=== PATIENT | male | born 1955 | race Caucasian/White ===

== ENCOUNTER 2016-08-21 09:09 | Day surgery (SDC) | payer BC, OTHER ==
[~2016-08-21 09:09] MED LIST: RINGERS SOLUTION,LACTATED 1,000 ML IV PRN
--- OUTSIDE RECORDS SUMMARY | 2016-08-21 09:15 | XMS REPORT | Continuity of Care Document ---
:1955 Author Organization [facility] ([facility]) [place] [address] Phone [phone] Care Team Providers Name Role Phone Mackenzie Horta Primary Care Provider [phone] Source Comments This disclosure is being made pursuant to the Care Everywhere program, applicable federal and state laws, and may not contain all informaitonavailable regarding this patient.[facility] ([facility]) Active Allergies and Adverse Reactions Allergen Noted Date Severity Reactions Comments Penicillin G 04/12/2014 Unknown Current Medications Prescription Sig. Disp. Refills Start Date End Date Status aspirin 81 mg EC Take 81 mg by mouth Active tablet daily. HYDROcodone-acetamino Take 1 Tab by mouth 30 Tab 0 04/12/2014 Active phen 5-325 mg per every 4 hours as tablet needed for Pain. DO NOT EXCEED 3,000 MG ACETAMINOPHEN PER DAY FROM ALL SOURCES Indications: PAIN ibuprofen 800 mg Take 1 Tab by mouth 30 Tab 0 04/12/2014 Active tablet every 6 hours as needed for Pain. DO NOT EXCEED 3,200 MG IBUPROFEN PER DAY FROM ALL SOURCES Indications: PAIN Active Problems Not on file Social History Tobacco Use Types Packs/Day Years Used Date Never Smoker Smokeless Tobacco: Current User Chew Tobacco Cessation:Ready to Quit: No; Counseling Given: Yes Comments: Alcohol Use Drinks/Week oz/Week Comments Yes 3 Cans of beer 1.5 Last Filed Vital Signs Vital Sign Reading Time Taken Blood Pressure 161/74 04/12/2014 11:00 AM WEIGHT YARDAGE CHECKER Pulse 97 04/12/2014 8:41 AM WEIGHT YARDAGE CHECKER Temperature 37.3 C (99.1 F) 04/12/2014 8:41 AM WEIGHT YARDAGE CHECKER Respiratory Rate 16 04/12/2014 8:41 AM WEIGHT YARDAGE CHECKER Height 1.753 m (5' 9") 04/12/2014 8:41 AM WEIGHT YARDAGE CHECKER Weight 95.255 kg (210 lb) 04/12/2014 8:41 AM WEIGHT YARDAGE CHECKER Body Mass Index 31 04/12/2014 8:41 AM WEIGHT YARDAGE CHECKER Oxygen Saturation 99% 04/12/2014 11:00 AM WEIGHT YARDAGE CHECKER Plan of Care Health Maintenance Due Date Last Done Comments HCV Screening 1955 Hepatitis B Vaccine (1 of 3 - Primary Series) 1955 Tdap Vaccine 1965 Lipid Disorder Screening 1972 Td Vaccine 1972 Colonoscopy 08/04/2004 Prostate Cancer Screening 2004 Zoster Vaccine 2014 Influenza Vaccine: Seasonal (#1) 11/04/2015 Results from Last 3 Months Not on file
--- OUTSIDE RECORDS SUMMARY | 2016-08-21 09:15 | XMS REPORT | Continuity of Care Document ---
:1955 Author Organization [employer] [place] [address] Care Team Providers Name Role Phone Unavailable Primary Care Provider Unavailable Source Comments This disclosure is being made pursuant to the [employer] program and maynot contain all information available regarding this patient.[employer] Active Allergies and Adverse Reactions Not on File Current Medications Be aware that medications may not be up to date as of this document. Alwaysverify current medications with the patient. Not on file Active Problems Not on file Social History Tobacco Use Types Packs/Day Years Used Date Never Assessed Plan of Care Health Maintenance Due Date Last Done Comments Retired-Pertussis Vaccine Adult 1973 Retired-Tetanus Vaccine Adult 1973 Colonoscopy 2004 Well Adult Visit 2004 Zoster Vaccine 60+ 2014 Retired-INFLUENZA VACCINE 12/04/2014 Results from Last 3 Months Not on file
[2016-08-21] MEDS ORDERED: RINGERS SOLUTION,LACTATED 1,000 ML IV ONE (09:39)
--- NOTE | 2016-08-21 10:54 | OR ---
Operative Report - Dictated Report Narrative: Date: 08/21/2016 PREOP: Perineal abscess possible fistula POSTOP: Perineal abscess PROC: Exam under anesthesia. I&D Perineal abscess Staff surgeon: Ady Solis MD Anes: Local/MAC Comps: none apparent Drains: none Description: Pt placed in prone/katie-knife position and buttocks taped apparent. Inspection reveals a punctum draining purulence 6 cm from anal verge just to the left of midline at the base of the scrotum. There is an irritated and bleeding external hemorrhoid at 2:00. A schmitt retractor is inserted into the anus and inspection is carried out of the anal canal and lower rectum. No readily obvious fistulous opening is identified. The abscess was irrigated with normal saline using a 14 ga. intracath. The abscess was then filled with hydrogen peroxide and no bubbling could be seen in the rectum or anal canal. A cruciate incision was therefore made at the opening of the abscess and all loculations were broken down by finger. The abscess extended 8 cm into the pelvis. Marcaine soaked gelfoam was packed in the anus and the opening of the abscess. An anal retentive dressing and sani-panties were applied. The patient tolerated the procedure well without apparent complications and discharged from the OR in good condition.
[2016-08-21] MEDS ORDERED: HYDROcodone/ACETAMINOPHEN 1 EACH TABLET PO PRN (10:56)
[2016-08-21 12:05] VITALS: BP 122/66
== END 2016-08-21 09:10 | disposition home or self-care (01) ==
LOC: AMB 09:09
PROVIDERS: ATTEND Specialist
PROC: 0D9QXZZ Drainage of Anus, External Approach (ICD-10-PCS; principal; 2016-08-21 10:45)
DX: K61.0 Anal abscess (principal); K64.4 Residual hemorrhoidal skin tags; F17.200 Nicotine dependence, unspecified, uncomplicated; Z68.31 Body mass index [BMI] 31.0-31.9, adult

== ENCOUNTER 2016-08-24 10:57 | Inpatient (IN) | payer OTHER ==
--- OUTSIDE RECORDS SUMMARY | 2016-08-24 11:04 | XMS REPORT | Continuity of Care Document ---
:1955 Author Organization [employer] [place] [address] Care Team Providers Name Role Phone Unavailable Primary Care Provider Unavailable Source Comments This disclosure is being made pursuant to the [employer] program and maynot contain all information available regarding this patient.[employer] Active Allergies and Adverse Reactions Not on [...]
--- OUTSIDE RECORDS SUMMARY | 2016-08-24 11:04 | XMS REPORT | Continuity of Care Document ---
:1955 Author Organization [facility] ([facility]) [place] [address] Phone [phone] Care Team Providers Name Role Phone Mackenzie Horta Primary Care Provider [phone] Source Comments This disclosure is being made pursuant to the Care Everywhere program, applicable federal and state laws, and may not contain all informaitonavailable regarding this patient.[facility] ([facility]) Active Allergies and Adverse Reactions Allergen Noted [...] Taken Blood Pressure 161/74 04/12/2014 11:00 AM DAMAGE ADJUSTER Pulse 97 04/12/2014 8:41 AM DAMAGE ADJUSTER Temperature 37.3 C (99.1 F) 04/12/2014 8:41 AM DAMAGE ADJUSTER Respiratory Rate 16 04/12/2014 8:41 AM DAMAGE ADJUSTER Height 1.753 m (5' 9") 04/12/2014 8:41 AM DAMAGE ADJUSTER Weight 95.255 kg (210 lb) 04/12/2014 8:41 AM DAMAGE ADJUSTER Body Mass Index 31 04/12/2014 8:41 AM DAMAGE ADJUSTER Oxygen Saturation 99% 04/12/2014 11:00 AM DAMAGE ADJUSTER Plan of Care Health Maintenance Due Date Last Done Comments HCV Screening 1955 Hepatitis B Vaccine (1 of 3 - Primary Series) 1955 Tdap Vaccine 1965 Lipid Disorder Screening 1972 Td Vaccine 1972 Colonoscopy 08/04/2004 Prostate Cancer Screening 2004 Zoster Vaccine 2014 Influenza Vaccine: Seasonal (#1) 11/04/2015 Results from Last 3 Months Not on file
[2016-08-24] MEDS ORDERED: PIPERACILLIN SODIUM/TAZOBACTAM 3.375 GM in DEXTROSE 5 % IN WATER 100 ML IV SCH ×4 (12:00→19:15)
[2016-08-24] MEDS ORDERED: traMADol HCL 50 MG TABLET PO PRN (12:03)
[2016-08-24] MEDS ORDERED: ONDANSETRON HCL/PF 2 MG/ML VIAL IV PRN (12:03)
[2016-08-24] MEDS ORDERED: MORPHINE SULFATE 2 MG/ML DISP.SYRIN IV PRN (12:04)
[2016-08-24] MEDS ORDERED: ENOXAPARIN SODIUM 40 MG/0.4 ML SYRG SC SCH (12:15)
[2016-08-24 12:38] LABS: Hemoglobin 12.3 gm/dL (13.5-18.0); Mean Cell Volume 88.3 fl (78-100); Mean Corpuscular Hemoglobin 29.4 pg (27-31); Mean Corpuscular Hgb Conc 33.2 g/dl (32-36); Platelet Count 221 K/mm3 (150-450); Red Blood Count 4.19 M/mm3 (4.7-6.0); Red Cell Distribution Width 13.8 % (11.5-14.0); White Blood Count 15.4 K/mm3 (4.0-10.5)
[2016-08-24 12:45] LABS: Albumin * 2.3 gm/dl (3.4-5.0); BUN/Creatinine Ratio 13.9 (9.0-21.6); Bilirubin, Total 0.8 mg/dL (0.0-1.1); Ca. Corrected For Albumin 10.3 mg/dL (8.4-10.2); Calcium * 9.3 mg/dL (7.9-10.9); Carbon Dioxide 26.9 mmol/L (24-32.6); Potassium 2.9 mmol/L (3.4-4.6); Total Cells Counted 100; Total Protein 7.9 gm/dL (6.2-8.2)
[2016-08-24 12:46] LABS: Band 1 % (0-2.0); Eosinophil 2 % (0-3); Lymphocyte 13 % (20-51); Monocyte 2 % (0-9); Neutrophil 82 % (42-75); Neutrophil # 12.6 K/mm3 (1.3-6.0); Platelet Estimate Normal (NORMAL); RBC Morphology Normal (NORMAL)
[2016-08-24 12:55] LABS: CRP 10.8 mg/dL (0.0-0.9)
[2016-08-24] MEDS ORDERED: NORMAL SALINE 1,000 ML IV ONE (13:04)
[2016-08-24] MEDS ORDERED: LORazepam 2 MG/ML DISP.SYRIN IV PRN ×3 (13:28)
[2016-08-24] MEDS ORDERED: MULTIVIT INFUSN,ADULT 4,VIT K 10 ML, THIAMINE HCL 100 MG in NORMAL SALINE 1,000 ML IV ONE (13:28)
[2016-08-24] MEDS ORDERED: HALOPERIDOL LACTATE 5 MG/ML VIAL IM PRN (13:28)
[2016-08-24] MEDS ORDERED: THIAMINE HCL 100 MG TABLET PO SCH (13:30)
[2016-08-24] MEDS ORDERED: FOLIC ACID 1 MG TABLET PO SCH (13:30)
[2016-08-24] MEDS ORDERED: MULTIVITAMINS 1 CAP CAPSULE PO SCH (13:30)
[2016-08-24] MEDS ORDERED: DIATRIZOATE MEGLU/DIATRIZO SOD 30 ML BTL PO ONE (13:49)
[2016-08-24 13:50] LABS: Magnesium 1.6 mg/dL (1.2-2.8)
[2016-08-24] MEDS ORDERED: NORMAL SALINE 1,000 ML IV PRN (13:51)
[2016-08-24] MEDS ORDERED: MAGNESIUM OXIDE 400 MG TABLET PO ONE (14:00)
[2016-08-24 14:01] LABS: Prothrombin Time (Patient) 12.7 Seconds (9.4-11.4)
[2016-08-24 14:02] LABS: INR 1.22 INR (0.90-1.10); Partial Thrombolplastin Time 33.1 Seconds (24-32)
[2016-08-24] MEDS ORDERED: VANCOMYCIN HCL 1.5 GM in DEXTROSE 5 % IN WATER 500 ML IV SCH ×2 (16:00)
[2016-08-24 16:12] LABS: Urine Bilirubin 1 mg/dl (NEGATIVE); Urine Ketone Negative (NEGATIVE); Urine Nitrite Negative (NEGATIVE); Urine Protein 100 mg/dL (NEGATIVE); Urine Urobilinogen 4 EU/dl (NORMAL)
[2016-08-24] MEDS: POTASSIUM CHLORIDE 100 ML IV SCH ×2 (16:26→19:23)
[2016-08-24 16:32] LABS: Urine Appearance Clear; Urine Blood 10 /ul (NEGATIVE); Urine Color Amber; Urine RBC 0-5 /hpf (0-5); Urine WBC 0-5 /hpf (0-5)
[2016-08-24 16:33] LABS: Urine Bacteria TRACE
[2016-08-24 16:35] LABS: Cocaine Ur Negative (NEGATIVE); Urine Barbiturate Negative (NEGATIVE); Urine Benzodiazepines Negative (NEGATIVE); Urine Opiates Negative (NEGATIVE); Urine PCP Negative (NEGATIVE); Urine THC Negative (NEGATIVE)
[2016-08-24] MEDS ORDERED: MAGNESIUM OXIDE 400 MG TABLET PO SCH (17:00)
--- NOTE | 2016-08-24 18:43 | HP ---
Chief Complaint - Chief Complaint Date of Service: 08/24/16 Time of Service: 15:50 Chief Complaint: Perineal abscess, left buttock abscess History of Present Illness: Christophe is a 61 yo male with known perineal abscess that was surgically incised and drainged on 08/21/16. He returned for follow up in general surgery clinic today and there was increasing redness in the left buttock and perineum. General surgery contacted medicine hr shared services consultant for admit with failed outpatient treatment of abscess and cellulitis of left buttock and perineum. He also reported in clinic seeing spots of red and yellow since surgery, fever, chills, increasing heat, redness, and firmness to left buttock. His past medical history is mostly remarkable for 12 pack per day alcohol use. He otherwise does not chronically take medications. Since surgery he has been on hydrocodone. - Patient's Past Medical History Patient History - Medical: Arthritis, Migraines Patient History - Cardiac/Respiratory: No pertinent hx Patient History - Cancer: No Hx of Cancer Patient History - Surgical Procedures: Other - 08/21/16 Incision and Drainage of perineal abscess Patient History - Other: None - Family History Father Family History - Medical: , No pertinent hx Family History - Cardiac/Respiratory: Myocardial Infarction Family History - Cancer: No pertinent family hx Mother Family History - Medical: , No pertinent hx Family History - Cardiac/Respiratory: No pertinent hx Family History - Cancer: Other - Social History Living Situations: home Abuse History: No History of abuse Psych History: No pertinent hx Smoking Status: Never smoker Have you smoked in the past 12 months: No Alcohol Use: heavy - 12 pack per day Drug Use: none Review Of Systems (GEN) - Review of Systems Generalized/Overall Review: Present: Chills, Fever EENTM: Present: Other - Seeing red and yellow spots Respiratory: Present: No Symptoms Reported Cardiac: Present: No Symptoms Reported Abdominal: Present: No Symptoms Reported Genitourinary: Present: No Symptoms Reported Musculoskeletal: Present: No Symptoms Reported Neurological: Present: No Symptoms Reported Skin: Present: Other - Increasing left buttock firmness, pain, redness, and heat Endocrine: Present: No Symptoms Reported Allergies/Adverse Reactions: Allergies Allergy/AdvReac Type Severity Reaction Status Date / Time Penicillins Allergy Unknown Verified 08/21/16 09:26 Home Medications: HOME MEDICATIONS NK [No Home Medication] 08/20/16 [Last Taken Unknown] Exam - Exam Vital Signs: Vital Signs - Last Taken Temp 37.0 C 08/24/16 15:00 Pulse 90 08/24/16 15:00 Resp 16 08/24/16 15:00 BP 132/74 08/24/16 15:00 Pulse Ox 95 08/24/16 15:00 Constitutional: Present: Alert, Oriented x3, Cooperative ENT Exam: Present: hearing grossly normal Eye Exam: bilateral eye: normal inspection Respiratory: Present: lungs clear, normal breath sounds Cardiovascular/Chest: Present: regular rate, rhythm, no murmur Abdomen: Present: Normal bowel sounds, soft, nontender, nondistended Skin Exam: Present: other - Left perineum and left buttock (hand sized area) erythematous and firm, mild drainage at perineum, no scrotal pain or swelling Neurologic: Present: alert, normal mood/affect, oriented x 3 Appearance: Present: appropriate appearance, appropriate insight Eye contact: Present: cooperative, good eye contact, normal speech Diagnostic Studies: Abnormal Lab Results 08/24/16 08/24/16 08/24/16 Range/Units 12:20 12:20 12:20 WBC 15.4 H (4.0-10.5) K/mm3 RBC 4.19 L (4.7-6.0) M/mm3 Hgb 12.3 L (13.5-18.0) gm/dL Hct 37.0 L (42.0-52.0) % Neutrophils % (Manual) 82 H (42-75) % Lymphocytes % (Manual) 13 L (20-51) % Neutrophils # (Manual) 12.6 H (1.3-6.0) K/mm3 ESR 103 H (0-10) mm/hr PT (9.4-11.4) Seconds INR (Anticoag Therapy) (0.90-1.10) INR PTT (Miguel A) (24-32) Seconds Potassium 2.9 L (3.4-4.6) mmol/L Lactic Acid, Venous (0.4-1.9) mmol/L Calcium Adj for Albumin 10.3 H (8.4-10.2) mg/dL C-Reactive Prot, Quant 10.8 H (0.0-0.9) mg/dL Albumin 2.3 L (3.4-5.0) gm/dl Procalcitonin (0.05-0.50) ng/mL Urine Protein (NEGATIVE) mg/dL Urine Blood (NEGATIVE) /ul Urine Bilirubin (NEGATIVE) mg/dl Urine Ictotest (NEGATIVE) Urine Urobilinogen (NORMAL) EU/dl 08/24/16 08/24/16 08/24/16 Range/Units 12:20 13:20 13:48 WBC (4.0-10.5) K/mm3 RBC (4.7-6.0) M/mm3 Hgb (13.5-18.0) gm/dL Hct (42.0-52.0) % Neutrophils % (Manual) (42-75) % Lymphocytes % (Manual) (20-51) % Neutrophils # (Manual) (1.3-6.0) K/mm3 ESR (0-10) mm/hr PT 12.7 H (9.4-11.4) Seconds INR (Anticoag Therapy) 1.22 H (0.90-1.10) INR PTT ([place]) 33.1 H (24-32) Seconds Potassium (3.4-4.6) mmol/L Lactic Acid, Venous 2.3 H* (0.4-1.9) mmol/L Calcium Adj for Albumin (8.4-10.2) mg/dL C-Reactive Prot, Quant (0.0-0.9) mg/dL Albumin (3.4-5.0) gm/dl Procalcitonin 7.26 H (0.05-0.50) ng/mL Urine Protein (NEGATIVE) mg/dL Urine Blood (NEGATIVE) /ul Urine Bilirubin (NEGATIVE) mg/dl Urine Ictotest (NEGATIVE) Urine Urobilinogen (NORMAL) EU/dl 08/24/16 08/24/16 Range/Units 15:55 16:30 WBC (4.0-10.5) K/mm3 RBC (4.7-6.0) M/mm3 Hgb (13.5-18.0) gm/dL Hct (42.0-52.0) % Neutrophils % (Manual) (42-75) % Lymphocytes % (Manual) (20-51) % Neutrophils # (Manual) (1.3-6.0) K/mm3 ESR (0-10) mm/hr PT (9.4-11.4) Seconds INR (Anticoag Therapy) (0.90-1.10) INR PTT ([place]) (24-32) Seconds Potassium (3.4-4.6) mmol/L Lactic Acid, Venous 2.2 H* (0.4-1.9) mmol/L Calcium Adj for Albumin (8.4-10.2) mg/dL C-Reactive Prot, Quant (0.0-0.9) mg/dL Albumin (3.4-5.0) gm/dl Procalcitonin (0.05-0.50) ng/mL Urine Protein 100 H (NEGATIVE) mg/dL Urine Blood 10 H (NEGATIVE) /ul Urine Bilirubin 1 H (NEGATIVE) mg/dl Urine Ictotest Positive H (NEGATIVE) Urine Urobilinogen 4 H (NORMAL) EU/dl Laboratory Results WBC 15.4 K/mm3 (4.0-10.5) H 08/24/16 12:20 RBC 4.19 M/mm3 (4.7-6.0) L 08/24/16 12:20 Hgb 12.3 gm/dL (13.5-18.0) L 08/24/16 12:20 Hct 37.0 % (42.0-52.0) L 08/24/16 12:20 MCV 88.3 fl (78-100) 08/24/16 12:20 MCH 29.4 pg (27-31) 08/24/16 12:20 MCHC 33.2 g/dl (32-36) 08/24/16 12:20 RDW 13.8 % (11.5-14.0) 08/24/16 12:20 Plt Count 221 K/mm3 (150-450) 08/24/16 12:20 Neutrophils % (Manual) 82 % (42-75) H 08/24/16 12:20 Band Neuts % (Manual) 1 % (0-2.0) 08/24/16 12:20 Lymphocytes % (Manual) 13 % (20-51) L 08/24/16 12:20 Monocytes % (Manual) 2 % (0-9) 08/24/16 12:20 Eosinophils % (Manual) 2 % (0-3) 08/24/16 12:20 Neutrophils # (Manual) 12.6 K/mm3 (1.3-6.0) H 08/24/16 12:20 Lymphocytes # (Manual) 2.0 k/mm3 (1.5-3.5) 08/24/16 12:20 Monocytes # (Manual) 0.3 k/mm3 (0.0-1.0) 08/24/16 12:20 Eosinophils # (Manual) 0.3 k/mm3 (0.0-0.7) 08/24/16 12:20 Platelet Estimate Normal (NORMAL) 08/24/16 12:20 RBC Morphology Normal (NORMAL) 08/24/16 12:20 ESR 103 mm/hr (0-10) H 08/24/16 12:20 PT 12.7 Seconds (9.4-11.4) H 08/24/16 13:48 INR (Anticoag Therapy) 1.22 INR (0.90-1.10) H 08/24/16 13:48 PTT ([place]) 33.1 Seconds (24-32) H 08/24/16 13:48 Sodium 134 mmol/L (132-142) 08/24/16 12:20 Plasma Sodium 134 mmol/L (130-142) 08/24/16 12:20 Potassium 2.9 mmol/L (3.4-4.6) L 08/24/16 12:20 Chloride 99 mmol/L (97-106) 08/24/16 12:20 Carbon Dioxide 26.9 mmol/L (24-32.6) 08/24/16 12:20 Anion Gap 11.0 mmol/L (6.8-13.8) 08/24/16 12:20 BUN 11 mg/dL (6-23) 08/24/16 12:20 Creatinine 0.79 mg/dL (0.4-1.4) 08/24/16 12:20 Est GFR (Non-Af Amer) 106 mL/min (60-130) 08/24/16 12:20 BUN/Creatinine Ratio 13.9 (9.0-21.6) 08/24/16 12:20 Random Glucose 108 mg/dL (70-110) 08/24/16 12:20 Lactic Acid, Venous 2.2 mmol/L (0.4-1.9) H* 08/24/16 16:30 Calcium 9.3 mg/dL (7.9-10.9) 08/24/16 12:20 Calcium Adj for Albumin 10.3 mg/dL (8.4-10.2) H 08/24/16 12:20 Magnesium 1.6 mg/dL (1.2-2.8) 08/24/16 12:20 Total Bilirubin 0.8 mg/dL (0.0-1.1) 08/24/16 12:20 AST 38 U/L (0-48) 08/24/16 12:20 ALT 39 U/L (19-67) 08/24/16 12:20 Alkaline Phosphatase 124 U/L (50-170) 08/24/16 12:20 C-Reactive Prot, Quant 10.8 mg/dL (0.0-0.9) H 08/24/16 12:20 Total Protein 7.9 gm/dL (6.2-8.2) 08/24/16 12:20 Albumin 2.3 gm/dl (3.4-5.0) L 08/24/16 12:20 Procalcitonin 7.26 ng/mL (0.05-0.50) H 08/24/16 12:20 Urine Color Britt 08/24/16 15:55 Urine Appearance Clear 08/24/16 15:55 Urine pH 6.0 pH (5.0-7.0) 08/24/16 15:55 Ur Specific Fellows 1.010 SP.GR. (1.005-1.030) 08/24/16 15:55 Urine Protein 100 mg/dL (NEGATIVE) H 08/24/16 15:55 Urine Glucose (UA) Negative mg/dL (NEGATIVE) 08/24/16 15:55 Urine Ketones Negative mg/dL (NEGATIVE) 08/24/16 15:55 Urine Blood 10 /ul (NEGATIVE) H 08/24/16 15:55 Urine Nitrate Negative (NEGATIVE) 08/24/16 15:55 Urine Bilirubin 1 mg/dl (NEGATIVE) H 08/24/16 15:55 Urine Ictotest Positive (NEGATIVE) H 08/24/16 15:55 Prot Sulfosalicylic Acd 1+ mg/dL (0) 08/24/16 15:55 Urine Urobilinogen 4 EU/dl (NORMAL) H 08/24/16 15:55 Ur Leukocyte Esterase Negative /ul (NEGATIVE) 08/24/16 15:55 Urine RBC 0-5 /hpf (0-5) 08/24/16 15:55 Urine WBC 0-5 /hpf (0-5) 08/24/16 15:55 Ur Epithelial Cells Trace /hpf (0-5) 08/24/16 15:55 Urine Bacteria Trace (NONE) 08/24/16 15:55 Urine Culture Comments No culture indicated 08/24/16 15:55 Urine Opiates Screen Negative (NEGATIVE) 08/24/16 15:55 Barbiturate Screen Negative (NEGATIVE) 08/24/16 15:55 Ur Phencyclidine Scrn Negative (NEGATIVE) 08/24/16 15:55 Urine Amphetamine Negative (NEGATIVE) 08/24/16 15:55 U Benzodiazepines Scrn Negative (NEGATIVE) 08/24/16 15:55 Urine Cocaine Screen Negative (NEGATIVE) 08/24/16 15:55 Urine Marijuana (THC) Negative (NEGATIVE) 08/24/16 15:55 Ethyl Alcohol Less than 3.0 mg/dL (0.0-10.0) 08/24/16 12:20 Assessment/Plan - Narrative Narrative: Christophe is a 61 yo male with Perineal abscess and left buttock abscess. He has the potential for severe sepsis with a known source of infection , fever, leukocytosis, and elevated lactic acid >2. Will treat with IVFs and broad spectrum antibiotics. Will obtain blood cultures x 2. He had surgical drainage on 08/21/16, but appearance is worsening. Will admit to IV antibiotics zosyn and vancomycin. Will obtain pelvic CT to evaluate for fourniers gangrene. Will cover pain with morphine. Will Place on CIWA with ativan prn per protocol due to 12 beer/day history. Patient with altered mental status with hallucinations, related to infection vs narcotics. Due to failed outpatient treatment of cellulitis/abscess he meets criteria for inpatient and expect >2 midnights for IV antibiotics. Will culture wound and change to oral based on culture results as able. If there is evidence of alisha's gangrene on CT will need to be transferred to a higher level of care. - Assessment/Plan (1) Perineal abscess Problem: Acute (2) Left buttock abscess Problem: Acute
[2016-08-24] MEDS ORDERED: PIPERACILLIN SODIUM/TAZOBACTAM 2.25 GM VIAL IV ONE (18:50)
[2016-08-24] MEDS ORDERED: CLINDAMYCIN PHOSPHATE 900 MG in DEXTROSE 5 % IN WATER 100 ML IV ONE ×2 (18:50)
[2016-08-24] MEDS ORDERED: CIPROFLOXACIN LACTATE/D5W 400 MG/200 ML BAG IV SCH (19:00)
[2016-08-24 19:35] VITALS: BP 148/85
--- NOTE | 2016-09-16 17:03 | DS ---
Transfer Discharge Summary - Diagnosis(s)/Problems (1) Cellulitis and abscess of buttock Problem: Acute (2) Necrotizing fasciitis Problem: Suspected (3) Left buttock abscess Problem: Acute (4) Perineal abscess Problem: Acute - Course Description of Stay: Christophe is a 61 yo male with known perineal abscess that was surgically incised and drainged on 08/21/16. He returned for follow up in general surgery clinic today and there was increasing redness in the left buttock and perineum. General surgery contacted medicine front end web developer for admit with failed outpatient treatment of abscess and cellulitis of left buttock and perineum. He also reported in clinic seeing spots of red and yellow since surgery, fever, chills, increasing heat, redness, and firmness to left buttock. His past medical history is mostly remarkable for 12 pack per day alcohol use. He otherwise does not chronically take medications. Since surgery he has been on hydrocodone. Patient was started on vanomycin iv and zosyn iv for antibiotic coverage. Ct of the pelvis revealed: IMPRESSION: 1. Abnormal CT examination, demonstrating inflammatory changes of the left buttock region, with abnormal soft tissue gas extending into the pelvis, scrotum , and retroperitoneum. 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 2. No definable focal fluid collection. Immediately upon receiving these results, the patient was notified and orders were given to transfer patient to [facility]. [facility] accepted the patient and he was transferred in critical condition via [facility]. Procedures Performed: none - Medications Medications: Active Medications Discontinued Medications Diatrizoate Meglum/Diatrizoate Sod (Gastrografin Solution) 60 ml PO ONCE ONE Stop: 08/24/16 13:50 Last Admin: 08/24/16 15:00 Dose: 60 ml Enoxaparin Sodium (Lovenox) 40 mg SC Q24H [facility] Stop: 09/23/16 12:16 Last Admin: 08/24/16 15:01 Dose: 40 mg Folic Acid (Folic Acid) 1 mg PO DAILY [facility] Stop: 09/23/16 13:31 Last Admin: 08/24/16 15:01 Dose: 1 mg Piperacillin Sod/Tazobactam (Sod 3.375 gm/ Dextrose/Water) 100 mls @ 25 mls/hr IV Q8H [facility] PRN Reason: Protocol Stop: 09/23/16 12:01 Last Infusion: 08/24/16 16:22 Dose: Infused Vancomycin HCl 1.5 gm/ (Dextrose/Water) 500 mls @ 140 mls/hr IV Q12H IRAJ PRN Reason: Protocol Stop: 09/23/16 16:01 Last Infusion: 08/24/16 18:48 Dose: Infused Potassium Chloride (Kcl 10 Meq/100 Ml Piggyback) 100 mls @ 100 mls/hr IV Q1H IRAJ Stop: 08/24/16 17:14 Last Admin: 08/24/16 19:23 Dose: 100 mls/hr Sodium Chloride (Sodium Chloride 0.9%) 1,000 mls @ 999 mls/hr IV .Q1H1M ONE Stop: 08/24/16 14:04 Last Admin: 08/24/16 14:30 Dose: 999 mls/hr Ciprofloxacin/Dextrose (Cipro) 400 mg in 200 mls @ 500 mls/hr IV ONCE IRAJ PRN Reason: Protocol Stop: 09/23/16 19:01 Last Admin: 08/24/16 19:13 Dose: 500 mls/hr Clindamycin Phosphate 900 mg/ (Dextrose/Water) 106 mls @ 200 mls/hr IV ONCE ONE PRN Reason: Protocol Stop: 08/24/16 19:21 Last Admin: 08/24/16 19:13 Dose: 200 mls/hr Piperacillin Sod/Tazobactam (Sod 3.375 gm/ Dextrose/Water) 100 mls @ 100 mls/ hr IV ONCE IRAJ Stop: 09/23/16 19:16 Last Admin: 08/24/16 19:13 Dose: 100 mls/hr Magnesium Oxide (Mag-Ox 400) 400 mg PO TID IRAJ Stop: 09/23/16 17:01 Last Admin: 08/24/16 16:33 Dose: 400 mg Magnesium Oxide (Mag-Ox 400) 400 mg PO ONCE ONE Stop: 08/24/16 14:01 Last Admin: 08/24/16 15:02 Dose: 400 mg Thiamine HCl (Vitamin B-1) 100 mg PO DAILY IRAJ Stop: 09/23/16 13:31 Last Admin: 08/24/16 15:02 Dose: 100 mg Tramadol HCl (Ultram) 50 mg PO Q4H PRN PRN Reason: Mild pain Stop: 09/23/16 12:04 Last Admin: 08/24/16 12:22 Dose: 50 mg - Disposition Disposition: [facility] Condition: Critical Discharge Date: 08/24/16 Discharge Time: 19:40
== END 2016-08-24 19:40 | disposition short-term general hospital (02) | DRG 602 ==
LOC: MS 10:57
PROVIDERS: ADMIT Nurse Practitioner Critical Care Medicine; ATTEND Specialist
PROC: HZ2ZZZZ Detoxification Services for Substance Abuse Treatment (ICD-10-PCS; principal; 2016-08-24)
DX: L02.31 Cutaneous abscess of buttock (principal); M72.6 Necrotizing fasciitis; L02.215 Cutaneous abscess of perineum; L03.317 Cellulitis of buttock; D72.829 Elevated white blood cell count, unspecified; R41.82 Altered mental status, unspecified; F10.20 Alcohol dependence, uncomplicated
CPT/HCPCS: 36415; 71020; 72193; 80053; 80307; 81001; 83605; 83735; 84145; 85007; 85025; 85610; 85652; 85730; 86140; 87040; 87070; 87077; 87081; 87186; 93005; G0481